=== PATIENT | female | born 1950 ===

== ENCOUNTER 2017-12-10 08:36 | Outpatient (RCR) | payer MEDICARE, MEDICAID ==
[2017-12-10] MEDS ORDERED: DENOSUMAB 60 MG/1 ML SYR SUBQ ONE (08:45)
[2017-12-10 08:51] VITALS: BP 136/81
== END 2017-12-10 13:04 | disposition home or self-care (01) ==
LOC: SPU 08:36
PROVIDERS: ATTEND Nurse Practitioner Family
DX: C50.411 Malignant neoplasm of upper-outer quadrant of right female breast (principal)
CPT/HCPCS: 96372; J0897

== ENCOUNTER → 2018-11-23 | Outpatient (CLI) | payer MEDICARE, MEDICAID | LOC: AUD 16:07 | PROVIDERS: ATTEND Nurse Practitioner Family | DX: H90.3 Sensorineural hearing loss, bilateral (principal) | CPT/HCPCS: 92557 ==